=== PATIENT | female | born 2000 | race Two or more races ===

== ENCOUNTER 2023-11-08 17:22 | Emergency (ER) | payer OTHER ==
[~2023-11-08] VITALS: Ht 149.9 cm; Wt 63.5 kg
[2023-11-08 17:54] VITALS: O2SAT 97
[2023-11-08 18:06] LABS: *BILIRUBIN,URIN NEGATIVE (NEGATIVE); *BLOOD, URINE 2+ (NEGATIVE); *CLARITY,URINE CLEAR (CLEAR); *COLOR,URINE YELLOW (YELLOW); *KETONES,URINE TRACE (NEGATIVE); *PROTEIN,URINE NEGATIVE (NEGATIVE); *UROBILINOGEN,URINE 0.2 E.U./dl (NORMAL); LEUKOCYTE ESTERASE ,URINE NEGATIVE (NEGATIVE); NITRITE, URINE NEGATIVE (NEGATIVE); UGLUCOSE NEGATIVE (NEGATIVE)
[2023-11-08 18:17] LABS: BACTERIA,URINE FEW /HPF (NONE SEEN); SQUAMOUS EPITHELIAL CELL,UR MODERATE /HPF (NONE SEEN); WBC,URINE 0-3 /HPF (0-3)
[2023-11-08 18:39] LABS: *URINE HCG, QUAL NEGATIVE (NEGATIVE)
== END 2023-11-08 18:55 | disposition home or self-care (01) ==
LOC: ER 17:23
DX: Z13.89 Encounter for screening for other disorder (principal); G43.909 Migraine, unspecified, not intractable, without status migrainosus; R10.2 Pelvic and perineal pain; Z60.2 Problems related to living alone
CPT/HCPCS: 84703; A4606; A4663